=== PATIENT | female | born 1995 | race Caucasian/White ===

== ENCOUNTER 2016-12-23 23:46 | Emergency (ER) | payer MEDICAID ==
[~2016-12-23] VITALS: Ht 157.5 cm; Wt 79.4 kg
[~2016-12-23 23:46] MED LIST: DICLOXACILLIN PO; FOLATE1 MG PO; PRENATAL VITAMI1 T10 PO
[2016-12-24 00:02] VITALS: BP 115/73
--- NOTE | 2016-12-24 00:09 | NUR ---
PT TAKEN TO OF2
--- NOTE | 2016-12-24 00:20 | NUR ---
PT MOVED TO BED 2
--- NOTE | 2016-12-24 00:24 | NUR ---
Dr. Morrow evaluating patient at bedside.
[2016-12-24] MEDS ORDERED: diphenhydrAMINE 50 MG/ML VIAL IVP ONE (00:30)
[2016-12-24] MEDS ORDERED: FAMOTIDINE 20 MG/2 ML VIAL IVP ONE (00:30)
[2016-12-24] MEDS ORDERED: DEXAMETHASONE 10 MG/ML VIAL IVP ONE (00:30)
--- NOTE | 2016-12-24 00:40 | NUR ---
A21Y F BIB FAMILY C/O ALLERGIC REACTION X 2 HOURS AGO TODAY; EYES RED AND C/O DIFFICULTY SEEING DUE TO PUFFY EYES;PT DENIES SOB OR DIFFICULTY BREATHING AT THE MOMENT PAIN 4/10 AROUND FACE HX APPENDIX AND TONSILS REMOVED. DENIES N/V/D; SKIN IS PINK/WARM/DRY; AAOX4 WITH EVEN AND STEADY GAIT; LUNGS CLEAR BL; HR EVEN AND REGULAR; PT DENIES ANY FEVER, CP, SOB, OR COUGH AT THIS TIME; PATIENT STATES PAIN OF 4/10 AT THIS TIME; VSS; PATIENT POSITIONED FOR COMFORT; HOB ELEVATED; BEDRAILS UP X2; BED DOWN. ER MD MADE AWARE OF PT STATUS.
[2016-12-24 01:52] VITALS: BP 113/74
--- NOTE | 2016-12-24 01:53 | NUR ---
Patient discharged with v/s stable. Written and verbal after care instructions given and explained. Patient alert, oriented and verbalized understanding of instructions. Ambulatory with steady gait. All questions addressed prior to discharge. ID band removed. Patient advised to follow up with PMD. Rx of OPTIVAR AND BENADRYL given. Patient educated on indication of medication including possible reaction and side effects. Opportunity to ask questions provided and answered.
== END 2016-12-24 01:53 | disposition home or self-care (01) ==
LOC: MED 23:46
DX: H10.13 Acute atopic conjunctivitis, bilateral (principal)
CPT/HCPCS: 96374; 96375; 99284; J1100; J1200; J3490

== ENCOUNTER 2017-01-31 21:11 | Emergency (ER) | payer MEDICAID ==
[~2017-01-31] VITALS: Ht 157.5 cm; Wt 77.1 kg
[2017-01-31 21:53] VITALS: BP 112/67
--- NOTE | 2017-01-31 22:05 | NUR ---
Patient to bed 07.
--- NOTE | 2017-01-31 22:06 | NUR ---
21 Y/O F W/C/O R ABD PAIN, FEVER AND CHILLS X 1 DAY. DENIES N/V. PT STATES TO BE SLIGHTY CONSTIPATED. NO ABD DISTENTION NOTED. PT STATES HAD A BABY ON 11/2016 VAGINAL DELIVERY.
--- NOTE | 2017-01-31 22:08 | NUR ---
Garrett mathis in [facility] - 01/31/17 at [address] Bar evaluating patient at bedside.
--- NOTE | 2017-01-31 22:31 | NUR ---
Dr. Bar evaluating patient at bedside.
[2017-01-31] MEDS ORDERED: KETOROLAC 30 MG/ML VIAL IM ONE (22:40)
--- NOTE | 2017-01-31 23:02 | NUR ---
Patient taken to US via wheelchair per tech.
[2017-02-01 01:03] VITALS: BP 119/68
--- NOTE | 2017-02-01 01:03 | NUR ---
Patient discharged with v/s stable. Written and verbal after care instructions given and explained. Patient alert, oriented and verbalized understanding of instructions. Ambulatory with steady gait. All questions addressed prior to discharge. ID band removed. Patient advised to follow up with PMD TOMORROW OR NEXT AVAILABLE APPOINTMENT OR RETURN TO ER IF CONDITION WORSENS. Rx of NAPROSYN given. Patient educated on indication of medication including possible reaction and side effects. Opportunity to ask questions provided and answered.
== END 2017-02-01 01:03 | disposition home or self-care (01) ==
LOC: MED 21:11
DX: N93.8 Other specified abnormal uterine and vaginal bleeding (principal)
CPT/HCPCS: 36415; 76830; 80053; 81002; 81025; 85025; 96372; 99285; J1885